=== PATIENT | male | born 1975 | race Caucasian/White ===

== ENCOUNTER 2024-09-17 13:17 | Outpatient (OUT) | payer SELFPAY | END 2024-09-17 13:18 | disposition home or self-care (01) | LOC: PST 13:18 | PROVIDERS: Visit Provider Surgery | DX: Z01.818 Encounter for other preprocedural examination (principal); Z12.11 Encounter for screening for malignant neoplasm of colon ==

== ENCOUNTER 2024-09-28 06:57 | Day surgery (SDC) | payer OTHER, SELFPAY ==
[2024-09-28 07:10] VITALS: BP 134/98; PULSE 78; TEMP 35.8; O2SAT 96; BMI 28.0
[2024-09-28] MEDS: 0.9 % SODIUM CHLORIDE 500 ML 50 ML IV (07:38)
--- NOTE | 2024-09-28 07:53 | W.PM.PROCNOT ---
Date of procedure: 09/28/24 Pre-op diagnosis: screening c-scope Post-op diagnosis: same as pre-op Procedure: Previous colonoscopy: never procedure: screening colonoscopy The patient was given IV conscious sedation.? The patient's SPO2 remained above 90% throughout the procedure. The colonoscope was inserted per rectum and advanced under direct vision to the cecum without difficulty.? The prep was good.? Findings: Terminal ileum os: normal Cecum/Ascending colon: normal Transverse colon: normal Descending/Sigmoid colon: normal Rectum/Anus: examined in normal and retroflexed positions and was normal Withdrawal Time was (minutes): 9 The colon was decompressed and the scope was removed.? The patient tolerated the procedure well. Recommendations/Plan: 1.? Lifestyle and dietary modifications as discussed 2.? F/U in 10 years for repeat c-scope 3.? Discussed with the family Anesthesia: MAC Surgeon: Jim Taylor Estimated blood loss (mL): 0 Pathology: none sent Condition: stable Disposition: PACU
[2024-09-28 08:13] VITALS: BP 126/88; PULSE 89; TEMP 36.3; O2SAT 95
[2024-09-28 08:28] VITALS: BP 142/94; PULSE 88; O2SAT 94
[2024-09-28 08:43] VITALS: BP 137/86; PULSE 84; TEMP 36.2; O2SAT 96
== END 2024-09-28 08:43 | disposition home or self-care (01) ==
PROVIDERS: PCP Nurse Practitioner; Visit Provider Surgery
PROC: (CPT 812; principal; 2024-09-28 08:00)
DX: Z12.11 Encounter for screening for malignant neoplasm of colon (principal); E78.5 Hyperlipidemia, unspecified; E07.9 Disorder of thyroid, unspecified
CPT/HCPCS: 45378; J2704